=== PATIENT | male | born 1985 | race Caucasian/White ===

== ENCOUNTER 2017-10-03 02:53 | Emergency (ER) | payer OTHER ==
[~2017-10-03] VITALS: Ht 172.7 cm; Wt 79.4 kg
[2017-10-03 02:53] VITALS: BP 121/79
--- NOTE | 2017-10-03 02:56 | ED.ADGEN ---
Adult General Chief Complaint Chief Complaint " I ve got a bad sore throat.. I ve had it for a while.." HPI HPI Patient is a 32 year old male who presents with above hx of pharyngitis . No hx of travel or specific ill contacts. Pt. up to date with vaccinations. Pt. follows at [place] for care. Does take Lisinopril for HTN. No complaints of angioedema. No hx of trauma. No recent overseas travel. Currently in the office training course at [place]. Review of Systems Review of Systems Constitutional: Denies fever or chills [] Eyes: Denies change in visual acuity, redness, or eye pain [] HENT: Denies nasal congestion . complains of sore throat [] Respiratory: Denies cough or shortness of breath [] Cardiovascular: No additional information not addressed in HPI [] GI: Denies abdominal pain, nausea, vomiting, bloody stools or diarrhea [] : Denies dysuria or hematuria [] Musculoskeletal: Denies back pain or joint pain [] Integument: Denies rash or skin lesions [] Neurologic: Denies headache, focal weakness or sensory changes [] Endocrine: Denies polyuria or polydipsia [] All other systems were reviewed and found to be within normal limits, except as documented in this note. Family History Family History Non-contributory to presentation. Current Medications Current Medications Current Medications Medications (Trade) Dose Ordered Sig/[facility] Start Time Stop Time Status Last Admin Dose Admin Ibuprofen (Motrin) 600 mg 1X ONCE 10/03/17 03:45 10/03/17 04:52 DC 10/03/17 03:53 600 MG Prednisone (Prednisone) 60 mg 1X ONCE 10/03/17 03:15 10/03/17 04:52 DC 10/03/17 03:53 60 MG See Nursing for home meds. Allergies Allergies Allergies Coded Allergies Type Severity Reaction Last Updated Verified No Known Drug Allergies 10/03/17 No Physical Exam Physical Exam Constitutional: Well developed, well nourished, no acute distress, non-toxic appearance. [] HENT: Normocephalic, atraumatic, bilateral external ears normal, oropharynx moist,very mild injection of pharynx, no oral exudates, nose mild rhinorrhea. Eyes: PERRLA, EOMI, conjunctiva normal, no discharge. [] Neck: Normal range of motion, no tenderness, supple, no stridor. [] Cardiovascular:Heart rate regular rhythm, no murmur [] Lungs & Thorax: Bilateral breath sounds clear to auscultation [] Abdomen: Bowel sounds normal, soft, no tenderness, no masses, no pulsatile masses. [] Skin: Warm, dry, no erythema, no rash. [] Back: No tenderness, no CVA tenderness. [] Extremities: No tenderness, no cyanosis, no clubbing, ROM intact, no edema. [] Neurologic: Alert and oriented X 3, normal motor function, normal sensory function, no focal deficits noted. [] Psychologic: Affect normal, judgement normal, mood normal. [] Current Patient Data Lab Results Laboratory Tests Test 10/03/17 03:04 Influenza Type A (Rapid) Negative (NEGATIVE) Influenza Type B (Rapid) Negative (NEGATIVE) Group A Streptococcus Rapid Negative (NEGATIVE) EKG EKG [] Radiology/Procedures Radiology/Procedures [] Course & Med Decision Making Course & Med Decision Making Pertinent Labs and Imaging studies reviewed. (See chart for details). Gargle with Listerine 4 x day. Take acetaminophen and ibuprofen for discomfort. Benadryl for congestion and drainage. Follow up with Kevin. Return if any concerns,. Follow up with ENT if persistent sore throat. [] Final Impression Final Impression 1. Pharyngitis[] 2. Viral Syndrome Problems: Dragon Disclaimer Dragon Disclaimer This electronic medical record was generated, in whole or in part, using a voice recognition dictation system. DESIREE BRASWELL MD Oct 03, 2017 02:56
[2017-10-03] MEDS ORDERED: HYDR-79 PO (03:30)
[2017-10-03] MEDS ORDERED: IBUP400T18 PO (03:30)
[2017-10-03] MEDS ORDERED: DIPH25CA58 PO (03:30)
[2017-10-03 03:47] LABS: INFLUENZA A PATIENT NEGATIVE (NEGATIVE); INFLUENZA B PATIENT NEGATIVE (NEGATIVE)
[2017-10-03] MEDS: predniSONE 20 MG TABLET PO ONE (03:53)
[2017-10-03] MEDS: IBUPROFEN 600 MG TABLET. PO ONE (03:53)
== END 2017-10-03 04:34 | disposition home or self-care (01) ==
LOC: ER 02:53 → EDBD 02:53 → ER 04:34
DX: B34.9 Viral infection, unspecified (principal); J02.9 Acute pharyngitis, unspecified; I10 Essential (primary) hypertension
CPT/HCPCS: 87070; 87804; 87880; 99284; J7512